=== PATIENT | female | born 1975 | race African-American/Black ===

== ENCOUNTER 2017-07-28 04:58 | Inpatient (IN) ==
[2017-07-28 05:48] LABS: Basophils % 0.7 % (0.0-0.8); Eosinophils # 0.1 10*3/uL (0.0-0.87); Eosinophils % 0.9 % (0.00-10.9); Hematocrit 40.5 VOL% (35.7-47.0); Hemoglobin 13.4 GM/DL (12.0-16.0); Immature Granulocytes % 0.4 %; Immature Granulocytes Absolute 0.02 #; Lymphocytes # 1.3 10*3/uL (1.4-4.0); Lymphocytes % 22.6 % (21.3-54.2); Mean Corpuscular HGB Conc 33.1 GM/DL (32-36); Mean Corpuscular Hemoglobin 25 PG (27-34); Mean Corpuscular Volume 76.9 FL (87-102); Mean Platelet Volume 10.4 FL (9.6-12.0); Monocytes # 0.6 10*3/uL (0.11-0.8); Monocytes % 11.6 % (1.7-12.7); Neutrophils # 3.5 10*3/uL (1.4-7.4); Neutrophils % 63.8 % (38.7-73.9); Platelet Count 317 T/CUMM (130-400); Red Blood Count 5.27 MC/CUMM (3.8-5.5); Red Cell Distribution Width 14.7 % (9.3-17.3); White Blood Count 5.5 T/CUMM (4-12)
[2017-07-28 05:54] LABS: Calcium 9.3 MG/DL (8.5-10.1); Osmolality,Calculated 281.1 MOS/KG (273-304)
[2017-07-28] MEDS ORDERED: CLINDAMYCIN INJ 50 ML IV ONE (06:05)
[2017-07-28] MEDS ORDERED: CLINDAMYCIN INJ 600 MG in PREMIX 1 EACH IV STA (06:06)
[2017-07-28] MEDS ORDERED: INSULIN REGULAR 100 UNIT/ML SUBCUT STA (06:15)
[2017-07-28] MEDS ORDERED: INSULIN REGULAR 100 UNIT/ML ONE (06:47)
[2017-07-28] MEDS ORDERED: SODIUM CHLORIDE 0.9% 1,000 ML IV STA (07:43)
[2017-07-28] MEDS ORDERED: DEXTROSE 50% 25 GM/50 ML VIAL IV PRN (08:06)
[2017-07-28] MEDS ORDERED: DOCUSATE SODIUM 100 MG CAPSULE PO PRN (08:06)
[2017-07-28] MEDS ORDERED: ONDANSETRON 4 MG/2 ML VIAL IV PRN (08:06)
[2017-07-28] MEDS ORDERED: ACETAMINOPHEN 325 MG TABLET PO PRN (08:06)
[2017-07-28] MEDS ORDERED: GLUCAGON 1 MG VIAL IM PRN (08:06)
[2017-07-28] MEDS: SODIUM CHLORIDE 0.9% 1,000 ML IV SCH ×2 (09:29→19:44)
[2017-07-28] MEDS: PANTOPRAZOLE 40 MG TABLET PO SCH (09:29)
[2017-07-28] MEDS: HYDROmorphone 2 MG/1 ML VIAL IV PRN ×3 (11:35→21:25)
[2017-07-28] MEDS: INSULIN REGULAR 100 UNIT/ML SUBCUT SCH ×3 (12:00→21:24)
[2017-07-28] MEDS: CLINDAMYCIN INJ 600 MG in PREMIX 1 EACH IV SCH ×3 (12:17→23:19)
[2017-07-28] MEDS ORDERED: GENTAMICIN INJ 320 MG in SODIUM CHLORIDE 0.9% 100 ML IV SCH (17:00)
[2017-07-28] MEDS: AMPICILLIN INJ 500 MG in SODIUM CHLORIDE 0.9% 100 ML IV SCH ×2 (17:47→21:26)
[2017-07-28] MEDS: ACYCLOVIR INJ 1,000 MG in SODIUM CHLORIDE 0.9% 250 ML IV SCH (18:32)
[2017-07-29] MEDS: SODIUM CHLORIDE 0.9% 1,000 ML IV SCH ×3 (00:18→20:29)
[2017-07-29] MEDS: HYDROmorphone 2 MG/1 ML VIAL IV PRN ×4 (00:35→16:44)
[2017-07-29] MEDS: ACYCLOVIR INJ 1,000 MG in SODIUM CHLORIDE 0.9% 250 ML IV SCH ×3 (01:59→17:53)
[2017-07-29] MEDS: AMPICILLIN INJ 500 MG in SODIUM CHLORIDE 0.9% 100 ML IV SCH (04:42)
[2017-07-29] MEDS: CLINDAMYCIN INJ 600 MG in PREMIX 1 EACH IV SCH ×5 (05:58→23:48)
[2017-07-29 07:22] LABS: Basophils % 0.5 % (0.0-0.8); Eosinophils # 0.1 10*3/uL (0.0-0.87); Hematocrit 39.3 VOL% (35.7-47.0); Hemoglobin 12.7 GM/DL (12.0-16.0); Immature Granulocytes % 0.3 %; Immature Granulocytes Absolute 0.02 #; Lymphocytes # 1.7 10*3/uL (1.4-4.0); Lymphocytes % 27.4 % (21.3-54.2); Mean Corpuscular HGB Conc 32.3 GM/DL (32-36); Mean Corpuscular Hemoglobin 25 PG (27-34); Mean Corpuscular Volume 78.3 FL (87-102); Mean Platelet Volume 10.4 FL (9.6-12.0); Monocytes # 0.7 10*3/uL (0.11-0.8); Monocytes % 10.6 % (1.7-12.7); Neutrophils # 3.8 10*3/uL (1.4-7.4); Neutrophils % 60.2 % (38.7-73.9); Platelet Count 306 T/CUMM (130-400); Red Blood Count 5.02 MC/CUMM (3.8-5.5); Red Cell Distribution Width 14.9 % (9.3-17.3); White Blood Count 6.3 T/CUMM (4-12)
[2017-07-29 07:45] LABS: Calcium 8.4 MG/DL (8.5-10.1); Osmolality,Calculated 280.7 MOS/KG (273-304); Potassium 3.5 MMOL/L (3.5-5.1)
[2017-07-29] MEDS: INSULIN REGULAR 100 UNIT/ML SUBCUT SCH ×5 (08:29→20:31)
[2017-07-29] MEDS: PANTOPRAZOLE 40 MG TABLET PO SCH (08:29)
[2017-07-29] MEDS: glipiZIDE 10 MG TABLET PO SCH (08:30)
[2017-07-29] MEDS: metFORMIN 500 MG TABLET PO SCH ×2 (09:59→20:30)
[2017-07-30] MEDS: ACYCLOVIR INJ 1,000 MG in SODIUM CHLORIDE 0.9% 250 ML IV SCH ×3 (01:44→18:06)
[2017-07-30] MEDS: SODIUM CHLORIDE 0.9% 1,000 ML IV SCH ×4 (04:17→19:54)
[2017-07-30] MEDS: HYDROmorphone 2 MG/1 ML VIAL IV PRN (05:10)
[2017-07-30] MEDS: CLINDAMYCIN INJ 600 MG in PREMIX 1 EACH IV SCH ×2 (05:10→12:43)
[2017-07-30 06:52] LABS: Basophils % 0.3 % (0.0-0.8); Eosinophils # 0.1 10*3/uL (0.0-0.87); Hematocrit 36.7 VOL% (35.7-47.0); Hemoglobin 11.7 GM/DL (12.0-16.0); Immature Granulocytes % 0.4 %; Immature Granulocytes Absolute 0.03 #; Lymphocytes # 1.9 10*3/uL (1.4-4.0); Lymphocytes % 27.8 % (21.3-54.2); Mean Corpuscular HGB Conc 31.9 GM/DL (32-36); Mean Corpuscular Hemoglobin 25 PG (27-34); Mean Corpuscular Volume 78.6 FL (87-102); Mean Platelet Volume 9.9 FL (9.6-12.0); Monocytes # 0.5 10*3/uL (0.11-0.8); Monocytes % 7.4 % (1.7-12.7); Neutrophils # 4.4 10*3/uL (1.4-7.4); Neutrophils % 63.1 % (38.7-73.9); Platelet Count 289 T/CUMM (130-400); Red Blood Count 4.67 MC/CUMM (3.8-5.5); Red Cell Distribution Width 14.7 % (9.3-17.3)
[2017-07-30 07:22] LABS: Calcium 8.1 MG/DL (8.5-10.1); Magnesium 1.7 MG/DL (1.8-2.4); Osmolality,Calculated 283.4 MOS/KG (273-304); Potassium 3.4 MMOL/L (3.5-5.1)
[2017-07-30] MEDS: glipiZIDE 10 MG TABLET PO SCH (08:31)
[2017-07-30] MEDS: metFORMIN 500 MG TABLET PO SCH ×2 (08:31→20:36)
[2017-07-30] MEDS: INSULIN REGULAR 100 UNIT/ML SUBCUT SCH ×4 (08:32→20:37)
[2017-07-30] MEDS: PANTOPRAZOLE 40 MG TABLET PO SCH (08:32)
[2017-07-30] MEDS: POTASSIUM CHLORIDE 20 MEQ TABLET PO PRN ×3 (08:32→12:43)
[2017-07-30] MEDS ORDERED: MAGNESIUM SULF RIDER 2 GM in PREMIX 1 EACH IV PRN (10:52)
[2017-07-30] MEDS: LEVOFLOXACIN INJ 750 MG in PREMIX 1 EACH IV SCH (16:43)
[2017-07-30 22:16] LABS: Apearance,Urine CLOUDY (Clear); Bacteria,Urine Occasional /HPF (Few); Bilirubin,Urine Negative (Negative); Blood, Urine Small mg/dL (Negative); Glucose,Urine (UA) 150 mg/dL (Negative); Ketones,Urine Negative (Negative); Mucus,Urine Occasional /LPF (Occasional); Nitrite,Urine Negative (Negative); Protein,Urine Negative; RBC,Urine 22 /HPF (0-4); Squamous Epithelial Cell,Urine Occasional /HPF (0-10); Urine Color Yellow (Yellow); Urine Specific Gravity 1.011 (1.001-1.035); Urine Urobilinogen < 2.0 EU/DL (0.2-1.0); WBC,Urine 116 /HPF (0-6)
[2017-07-31] MEDS: HYDROmorphone 2 MG/1 ML VIAL IV PRN (00:59)
[2017-07-31] MEDS: ACYCLOVIR INJ 1,000 MG in SODIUM CHLORIDE 0.9% 250 ML IV SCH ×3 (01:00→18:03)
[2017-07-31] MEDS: SODIUM CHLORIDE 0.9% 1,000 ML IV SCH ×2 (03:49→07:50)
[2017-07-31 06:39] LABS: Basophils % 0.2 % (0.0-0.8); Eosinophils # 0.1 10*3/uL (0.0-0.87); Eosinophils % 1.4 % (0.00-10.9); Hemoglobin 10.7 GM/DL (12.0-16.0); Immature Granulocytes % 0.4 %; Immature Granulocytes Absolute 0.02 #; Lymphocytes % 41.7 % (21.3-54.2); Mean Corpuscular HGB Conc 33.4 GM/DL (32-36); Mean Corpuscular Hemoglobin 26 PG (27-34); Mean Corpuscular Volume 77.5 FL (87-102); Mean Platelet Volume 10.5 FL (9.6-12.0); Monocytes # 0.3 10*3/uL (0.11-0.8); Monocytes % 6.5 % (1.7-12.7); Neutrophils # 2.4 10*3/uL (1.4-7.4); Neutrophils % 49.8 % (38.7-73.9); Platelet Count 266 T/CUMM (130-400); Red Blood Count 4.13 MC/CUMM (3.8-5.5); Red Cell Distribution Width 14.7 % (9.3-17.3); White Blood Count 4.9 T/CUMM (4-12)
[2017-07-31 06:55] LABS: Calcium 8.3 MG/DL (8.5-10.1); Osmolality,Calculated 283.3 MOS/KG (273-304); Potassium 3.5 MMOL/L (3.5-5.1)
[2017-07-31 07:14] LABS: Eosinophils 2 % (0-10); Hypochromasia 1+; Lymphocytes 42 % (20-55); Segmented Neutrophils 47 % (50-85); Total Cells Counted 100
[2017-07-31 07:15] LABS: Microcytosis Slight
[2017-07-31] MEDS: PANTOPRAZOLE 40 MG TABLET PO SCH (09:23)
[2017-07-31] MEDS: metFORMIN 500 MG TABLET PO SCH ×2 (09:23→21:19)
[2017-07-31] MEDS: INSULIN REGULAR 100 UNIT/ML SUBCUT SCH ×4 (09:23→21:28)
[2017-07-31] MEDS: glipiZIDE 10 MG TABLET PO SCH (09:23)
[2017-07-31] MEDS: POTASSIUM CHLORIDE 20 MEQ TABLET PO PRN ×2 (09:24→13:58)
[2017-07-31] MEDS ORDERED: HYDROmorphone 2 MG/1 ML VIAL IV PRN (16:45)
[2017-07-31] MEDS: LEVOFLOXACIN INJ 750 MG in PREMIX 1 EACH IV SCH (16:55)
[2017-07-31] MEDS: CIPROFLOXACIN 500 MG TABLET PO SCH (21:18)
[2017-07-31] MEDS: ESCITALOPRAM 10 MG TABLET PO SCH (21:19)
[2017-08-01] MEDS: ACYCLOVIR INJ 1,000 MG in SODIUM CHLORIDE 0.9% 250 ML IV SCH ×3 (01:52→18:40)
[2017-08-01] MEDS: SODIUM CHLORIDE 0.9% 1,000 ML IV SCH ×3 (01:52→14:11)
[2017-08-01] MEDS: PANTOPRAZOLE 40 MG TABLET PO SCH (09:00)
[2017-08-01] MEDS: CIPROFLOXACIN 500 MG TABLET PO SCH ×2 (09:00→20:19)
[2017-08-01] MEDS: INSULIN REGULAR 100 UNIT/ML SUBCUT SCH ×4 (09:00→20:15)
[2017-08-01] MEDS: glipiZIDE 10 MG TABLET PO SCH (09:00)
[2017-08-01] MEDS: metFORMIN 500 MG TABLET PO SCH (09:06)
[2017-08-01] MEDS ORDERED: HYDROmorphone 2 MG/1 ML VIAL IV PRN (15:38)
[2017-08-01] MEDS: ESCITALOPRAM 10 MG TABLET PO SCH (20:19)
[2017-08-02] MEDS: ACYCLOVIR INJ 1,000 MG in SODIUM CHLORIDE 0.9% 250 ML IV SCH ×2 (01:56→09:20)
[2017-08-02 06:38] LABS: Basophils % 0.2 % (0.0-0.8); Eosinophils # 0.1 10*3/uL (0.0-0.87); Eosinophils % 1.2 % (0.00-10.9); Hematocrit 31.6 VOL% (35.7-47.0); Hemoglobin 10.4 GM/DL (12.0-16.0); Immature Granulocytes % 0.5 %; Immature Granulocytes Absolute 0.03 #; Lymphocytes # 2.1 10*3/uL (1.4-4.0); Lymphocytes % 32.6 % (21.3-54.2); Mean Corpuscular HGB Conc 32.9 GM/DL (32-36); Mean Corpuscular Hemoglobin 25 PG (27-34); Mean Corpuscular Volume 77.3 FL (87-102); Mean Platelet Volume 9.6 FL (9.6-12.0); Monocytes # 0.4 10*3/uL (0.11-0.8); Monocytes % 5.7 % (1.7-12.7); Neutrophils # 3.9 10*3/uL (1.4-7.4); Neutrophils % 59.8 % (38.7-73.9); Platelet Count 309 T/CUMM (130-400); Red Blood Count 4.09 MC/CUMM (3.8-5.5); Red Cell Distribution Width 14.5 % (9.3-17.3); White Blood Count 6.4 T/CUMM (4-12)
[2017-08-02 07:11] VITALS: BP 139/78
[2017-08-02] MEDS: INSULIN REGULAR 100 UNIT/ML SUBCUT SCH ×2 (07:22→12:05)
[2017-08-02 07:34] LABS: Calcium 8.3 MG/DL (8.5-10.1)
[2017-08-02 07:35] LABS: Potassium 3.7 MMOL/L (3.5-5.1)
[2017-08-02 07:42] LABS: Magnesium 1.7 MG/DL (1.8-2.4); Osmolality,Calculated 284.1 MOS/KG (273-304)
[2017-08-02] MEDS: glipiZIDE 10 MG TABLET PO SCH (09:15)
[2017-08-02] MEDS: PANTOPRAZOLE 40 MG TABLET PO SCH (09:15)
[2017-08-02] MEDS: CIPROFLOXACIN 500 MG TABLET PO SCH (09:15)
[2017-08-04 13:00] LABS: HSV 2, PCR Negative (Negative)
== END 2017-08-02 12:33 | disposition home or self-care (01) | DRG 758 ==
LOC: N.ED 04:58 → SUATTDRO 08:04 → N.EDINP 08:04 → N.5E 09:16
PROVIDERS: ADMIT Internal Medicine; ATTEND Internal Medicine